=== PATIENT | female | born 1935 | race Caucasian/White ===

== ENCOUNTER 2021-03-28 20:49 | Emergency (ER) | payer MEDICARE ==
[~2021-03-28] VITALS: Ht 154.9 cm; Wt 40.8 kg
[2021-03-28 22:12] VITALS: BP 135/85
--- NOTE | 2021-03-28 23:04 | NUR ---
Patient discharged to home in stable condition. Written and verbal after care instructions given. Patient verbalizes understanding of instruction.
== END 2021-03-28 23:10 | disposition home or self-care (01) ==
LOC: ER 20:52
DX: T23.102A Burn of first degree of left hand, unspecified site, initial encounter (principal); I10 Essential (primary) hypertension; Z86.73 Personal history of transient ischemic attack (TIA), and cerebral infarction without residual deficits; X11.8XXA Contact with other hot tap-water, initial encounter; Y93.89 Activity, other specified; Y92.89 Other specified places as the place of occurrence of the external cause; Y99.8 Other external cause status

== ENCOUNTER 2021-08-10 13:50 | Emergency (ER) | payer MEDICARE ==
[~2021-08-10] VITALS: Ht 154.9 cm; Wt 40.8 kg
--- NOTE | 2021-08-10 14:00 | NUR ---
REcieved pt 86 yrs famale came from home accompany by ila c/o s/p fell down this morning and c/o pain on back on head no lose of ontion
--- NOTE | 2021-08-10 14:50 | NUR ---
TO CT SCAN OF HEAD VIA OSIEL
--- NOTE | 2021-08-10 15:05 | NUR ---
BACK FORM CT SCAN WAKE AND ALERT
[2021-08-10] MEDS ORDERED: ACETAMINOPHEN ES 500 MG TABLET ONE (15:10)
[2021-08-10] MEDS: ACETAMINOPHEN ES 500 MG TABLET PO ONE (15:11)
--- NOTE | 2021-08-10 16:30 | NUR ---
d/c instraction given to pt and beckyd d/c home with stable condition awake and alert
[2021-08-10 16:37] VITALS: BP 132/69
== END 2021-08-10 16:38 | disposition home or self-care (01) ==
LOC: ER 13:56
DX: S09.8XXA Other specified injuries of head, initial encounter (principal); I10 Essential (primary) hypertension; W18.30XA Fall on same level, unspecified, initial encounter; Y93.89 Activity, other specified; Y92.89 Other specified places as the place of occurrence of the external cause; Y99.8 Other external cause status
CPT/HCPCS: 70450-TC; 72125-TC

== ENCOUNTER 2022-10-16 19:41 | Emergency (ER) | payer MEDICARE ==
[~2022-10-16] VITALS: Ht 152.4 cm; Wt 45.8 kg
[2022-10-16 22:10] VITALS: BP 191/100; TEMP 98.3
--- NOTE | 2022-10-16 22:14 | NUR ---
BIBHUSBAND FROM HOME C/O BILATERAL EYE IRRIATAION FROM [place]ORIE DISH SOAP. PT A/OX3; FORGETFUL PER BASELINE. TOLERATING R/A WELL WITH NO RESP DISTRESS.
--- NOTE | 2022-10-16 22:22 | NUR ---
PT SEEN BY DR FIERRO FOR EVAL
[2022-10-16] MEDS ORDERED: DEXT15DR6 EACHEYE (22:33)
[2022-10-16 22:42] VITALS: O2SAT 100
--- NOTE | 2022-10-16 22:42 | NUR ---
Patient discharged to home in stable condition. Written and verbal after care instructions given. Patient verbalizes understanding of instruction.
== END 2022-10-16 22:42 | disposition home or self-care (01) ==
LOC: ER 19:45
DX: H10.9 Unspecified conjunctivitis (principal); I10 Essential (primary) hypertension; F03.90 Unspecified dementia, unspecified severity, without behavioral disturbance, psychotic disturbance, mood disturbance, and anxiety

== ENCOUNTER 2023-12-06 08:57 | Emergency (ER) | payer MEDICARE ==
[~2023-12-06] VITALS: Ht 152.4 cm; Wt 43.1 kg
[~2023-12-06 08:57] MED LIST: DEXT15DR6 EACHEYE
[2023-12-06 11:23] VITALS: BP 160/70; TEMP 97.9; O2SAT 96
== END 2023-12-06 11:23 | disposition home or self-care (01) ==
LOC: ER 09:03
DX: S00.01XA Abrasion of scalp, initial encounter (principal); I10 Essential (primary) hypertension; F03.90 Unspecified dementia, unspecified severity, without behavioral disturbance, psychotic disturbance, mood disturbance, and anxiety; Z86.73 Personal history of transient ischemic attack (TIA), and cerebral infarction without residual deficits; Z86.69 Personal history of other diseases of the nervous system and sense organs; W01.198A Fall on same level from slipping, tripping and stumbling with subsequent striking against other object, initial encounter; Y93.89 Activity, other specified; Y92.098 Other place in other non-institutional residence as the place of occurrence of the external cause; Y99.8 Other external cause status
CPT/HCPCS: 70450-TC